=== PATIENT | female | born 1940 | race African-American/Black ===

== ENCOUNTER 2017-11-27 06:30 | Emergency (ER) | payer MEDICARE, MEDICAID ==
[~2017-11-27] VITALS: Ht 154.9 cm; Wt 68.0 kg
[~2017-11-27 06:30] MED LIST: ACET-2708 PO; ALLO100T PO; AMLO2.5T45 PO; COLC0.6T66 PO; FENO134C PO; ILEVRO LEFTEYE; NAPR-681 PO; NASOI BOTHNSTRLS; NEO/3.5O EACHEYE; OLME20TA14 PO; OMEP20CA4 PO; PRED5DRO7 LEFTEYE; REFRESH OPTIVE LEFTEYE; ROSU10TA PO; SAXA5TAB PO; SYSOS LEFTEYE; TRIA1TAB94 PO
[2017-11-27] MEDS ORDERED: IBUPROFEN 600MG TABLET PO ONE (09:30)
[2017-11-27] MEDS ORDERED: DEXAMETHASONE 4MG/ML 1ML VIAL IM ONE (09:30)
[2017-11-27 10:42] VITALS: BP 138/60
== END 2017-11-27 10:46 | disposition home or self-care (01) ==
LOC: ER 06:30
DX: M19.072 Primary osteoarthritis, left ankle and foot (principal); M21.42 Flat foot [pes planus] (acquired), left foot; I10 Essential (primary) hypertension; E11.9 Type 2 diabetes mellitus without complications; M10.9 Gout, unspecified; Z88.5 Allergy status to narcotic agent; Z88.0 Allergy status to penicillin; Z79.899 Other long term (current) drug therapy; Z98.890 Other specified postprocedural states
CPT/HCPCS: 36415; 73630; 84550; 96372; 99285; J1100

== ENCOUNTER 2021-08-19 09:11 | Emergency (ER) | payer MEDICARE, MEDICAID ==
[~2021-08-19] VITALS: Ht 154.9 cm; Wt 70.0 kg
[~2021-08-19 09:11] MED LIST changes: -COLC0.6T66 PO; +CRES10 PO; -NAPR-681 PO; -NEO/3.5O EACHEYE; +NEOM3.5O42 EACHEYE; -OLME20TA14 PO; -ROSU10TA PO; -SAXA5TAB PO; -TRIA1TAB94 PO
[2021-08-19] MEDS ORDERED: KETOROLAC 15MG/ML VIAL IM ONE (10:30)
[2021-08-19] MEDS ORDERED: CYCLOBENZAPRINE 10MG TABLET PO ONE (10:30)
[2021-08-19] MEDS ORDERED: LIDOCAINE 5% PATCH TOP SCH (10:30)
[2021-08-19] MEDS ORDERED: CYCL25PO15 MT (12:05)
[2021-08-19 12:25] VITALS: BP 129/58
== END 2021-08-19 12:36 | disposition home or self-care (01) ==
LOC: ER 09:11
DX: M54.9 Dorsalgia, unspecified (principal); R55 Syncope and collapse; E11.9 Type 2 diabetes mellitus without complications; I10 Essential (primary) hypertension; Z79.899 Other long term (current) drug therapy; Z88.0 Allergy status to penicillin
CPT/HCPCS: 96372; 99283; J1885

== ENCOUNTER 2024-02-14 10:01 | Emergency (ER) | payer MEDICARE, MEDICAID ==
[~2024-02-14] VITALS: Ht 160 cm; Wt 66.0 kg
[~2024-02-14 10:01] MED LIST changes: -AMLO2.5T45 PO; +AZIL40TA MT; +CRES10 MT; +CYAN-33 MT; +CYCL25PO15 MT; +DAPA10TA MT; -FENO134C PO; +FENO134C21 PO; +POTA-205 MT
[2024-02-14 10:12] VITALS: O2SAT 99
[2024-02-14 10:36] LABS: BASOPHILS % 0.4 % (0.0-2.0); DIFFERENTIAL COMMENT 0; HEMATOCRIT. 33.2 % (36.0-48.0); HEMOGLOBIN. 10.6 g/dL (12.0-16.0); LYMPHOCYTES % 12.6 % (20.0-50.0); MEAN CORPUSCULAR HEMOGLOBIN 23.2 pg (28.0-32.0); MEAN CORPUSCULAR HGB CONC 32.1 g/dL (31.0-37.0); MEAN CORPUSCULAR VOLUME 72.4 fL (81.0-99.0); MEAN PLATELET VOLUME 7.4 fl (7.4-10.4); MONOCYTES % 8.4 % (2.0-8.0); NEUTROPHILS % 77.6 % (40.0-76.0); PLATELET 414 x1000/uL (130-400); RED BLOOD CELL COUNT 4.59 mill/uL (4.2-5.4); RED CELL DISTRIBUTION WIDTH 18.2 % (11.6-14.6); WHITE BLOOD COUNT 10.8 x1000/uL (4.5-11.0)
[2024-02-14 10:50] LABS: CHLORIDE 105 mEq/L (98-107); POTASSIUM 2.9 mEq/L (3.5-5.1); SODIUM 136 mEq/L (136-145)
[2024-02-14 10:51] LABS: CALCIUM 9.2 mg/dL (8.7-10.4); CARBON DIOXIDE 20 mEq/L (21-32)
[2024-02-14 10:56] LABS: CREATININE 1.4 mg/dL (0.6-1.0); GLUCOSE 145 mg/dL (70-105); UREA NITROGEN BLOOD 15 mg/dL (9-23)
[2024-02-14 10:57] LABS: TROPONIN I HIGH SENSITIVITY 21 ng/L (3.0-34)
[2024-02-14 11:32] VITALS: BP 122/68; PULSE 74; RESP 16; TEMP 36.50292; O2SAT 99
== END 2024-02-14 11:33 | disposition home or self-care (01) ==
LOC: ER 10:01
DX: E87.6 Hypokalemia (principal); R05.9 Cough, unspecified; I10 Essential (primary) hypertension; E11.9 Type 2 diabetes mellitus without complications; Z88.0 Allergy status to penicillin; Z88.5 Allergy status to narcotic agent; Z79.899 Other long term (current) drug therapy; Z98.890 Other specified postprocedural states
CPT/HCPCS: 36415; 71045; 80048; 84484; 85025; 93005; 99285

== ENCOUNTER 2024-07-03 03:06 | Emergency (ER) | payer MEDICARE ==
[~2024-07-03] VITALS: Ht 154.9 cm; Wt 63.0 kg
[2024-07-03 05:17] LABS: BASOPHILS % 0.6 % (0.0-2.0); DIFFERENTIAL COMMENT 0; EOSINOPHILS % 1.3 % (0.0-5.0); HEMATOCRIT. 37.3 % (36.0-48.0); HEMOGLOBIN. 12.1 g/dL (12.0-16.0); LYMPHOCYTES % 9.2 % (20.0-50.0); MEAN CORPUSCULAR HEMOGLOBIN 23.2 pg (28.0-32.0); MEAN CORPUSCULAR HGB CONC 32.4 g/dL (31.0-37.0); MEAN CORPUSCULAR VOLUME 71.7 fL (81.0-99.0); MEAN PLATELET VOLUME 7.1 fl (7.4-10.4); MONOCYTES % 7.2 % (2.0-8.0); NEUTROPHILS % 81.7 % (40.0-76.0); PLATELET 462 x1000/uL (130-400); RED CELL DISTRIBUTION WIDTH 18.7 % (11.6-14.6); WHITE BLOOD COUNT 8.2 x1000/uL (4.5-11.0)
[2024-07-03] MEDS: IPRATROPIUM/ALBUTEROL 0.5-3(2.5)MG/3ML NEB HHN ONE (05:17)
[2024-07-03 05:18] VITALS: PULSE 70; RESP 20; O2SAT 96
[2024-07-03 05:30] LABS: CHLORIDE 103 mEq/L (98-107); POTASSIUM 3.4 mEq/L (3.5-5.1); SODIUM 142 mEq/L (136-145)
[2024-07-03 05:31] LABS: CARBON DIOXIDE 28 mEq/L (21-32)
[2024-07-03 05:32] LABS: CALCIUM 9.3 mg/dL (8.7-10.4)
[2024-07-03 05:36] LABS: CREATININE 1.4 mg/dL (0.6-1.0); GLUCOSE 155 mg/dL (70-105)
[2024-07-03 05:37] LABS: UREA NITROGEN BLOOD 16 mg/dL (9-23)
[2024-07-03 05:38] LABS: TROPONIN I HIGH SENSITIVITY 24 ng/L (3.0-34)
[2024-07-03] MEDS: METHYLPREDNISOLONE SOD SUCC 125MG/2ML (ACT-O-VIAL) IV NR (07:59)
[2024-07-03] MEDS: METHYLPREDNISOLONE 40MG/ML INJ IV ONE (07:59)
[2024-07-03 08:48] LABS: TROPONIN I HIGH SENSITIVITY 25 ng/L (3.0-34)
[2024-07-03] MEDS: POTASSIUM CHLORIDE 20MEQ/PACKET PO ONE ×2 (08:53)
[2024-07-03 09:58] VITALS: BP 158/62; PULSE 78; RESP 18; TEMP 36.8; O2SAT 98
== END 2024-07-03 10:00 | disposition home or self-care (01) ==
LOC: ER 04:32
DX: R60.0 Localized edema (principal); E11.9 Type 2 diabetes mellitus without complications; I10 Essential (primary) hypertension; M19.90 Unspecified osteoarthritis, unspecified site; Z79.51 Long term (current) use of inhaled steroids; Z79.84 Long term (current) use of oral hypoglycemic drugs; Z79.899 Other long term (current) drug therapy; Z88.0 Allergy status to penicillin; Z88.5 Allergy status to narcotic agent
CPT/HCPCS: 80048; 83880; 85025; 84484; 36415; 71045; 94640; 94664; 93005; 94070; 98960; 99285; J2920

== ENCOUNTER 2025-02-19 13:03 | Emergency (ER) | payer MEDICARE, MEDICAID ==
[~2025-02-19] VITALS: Ht 154.9 cm; Wt 69.0 kg
[~2025-02-19 13:03] MED LIST changes: +ASPI-1497 PO; +ATOR40TA70 MT; -CRES10 MT; -CRES10 PO; +DILT180T11 PO; +FLUT1AER INH; +FLUT9.9S BOTHNSTRLS; +HYDR50TA40 PO; -ILEVRO LEFTEYE; +KETO-104 EACHEYE; +LINA5TAB PO; +LOSA50TA41 MT; -NASOI BOTHNSTRLS; -NEOM3.5O42 EACHEYE; -OMEP20CA4 PO; +PRED5DRO22 LEFTEYE; -PRED5DRO7 LEFTEYE; +PROM6.2527 PO; -REFRESH OPTIVE LEFTEYE; -SYSOS LEFTEYE
[2025-02-19 13:10] VITALS: O2SAT 100
[2025-02-19 13:12] VITALS: BP 179/48; PULSE 66; RESP 18; TEMP 36.9; O2SAT 99
[2025-02-19 14:00] LABS: BASOPHILS % 0.7 % (0.0-2.0); EOSINOPHILS % 1.7 % (0.0-5.0); HEMATOCRIT. 34.4 % (36.0-48.0); HEMOGLOBIN. 11.0 g/dL (12.0-16.0); LYMPHOCYTES % 14.8 % (20.0-50.0); MEAN PLATELET VOLUME 7.2 fl (7.4-10.4); MONOCYTES % 7.5 % (2.0-8.0); NEUTROPHILS % 75.3 % (40.0-76.0); PLATELET 515 x1000/uL (130-400); RED BLOOD CELL COUNT 4.56 mill/uL (4.2-5.4); RED CELL DISTRIBUTION WIDTH 17.1 % (11.6-14.6)
[2025-02-19 14:29] LABS: CREATININE 1.3 mg/dL (0.6-1.0); UREA NITROGEN BLOOD 12 mg/dL (9-23)
[2025-02-19 14:30] LABS: TROPONIN I HIGH SENSITIVITY 18 ng/L (3.0-34)
[2025-02-19 14:31] LABS: ASPARTATE AMINOTRANSFERASE 14 IU/L (<34); BILIRUBIN DIRECT 0.1 mg/dL (<=3.0); BILIRUBIN TOTAL 0.3 mg/dL (0.1-1.0); PROTEIN TOTAL 7.2 g/dL (6.0-8.3)
[2025-02-19] MEDS: POTASSIUM CHLORIDE 20MEQ/PACKET PO SCH (15:08)
[2025-02-19] MEDS: LOSARTAN 25 MG TABLET PO ONE (15:08)
== END 2025-02-19 15:23 | disposition home or self-care (01) ==
LOC: ER 13:03
DX: I10 Essential (primary) hypertension (principal); J45.909 Unspecified asthma, uncomplicated; E11.9 Type 2 diabetes mellitus without complications; E78.00 Pure hypercholesterolemia, unspecified; Z79.899 Other long term (current) drug therapy; Z88.0 Allergy status to penicillin; Z88.5 Allergy status to narcotic agent
CPT/HCPCS: 36415; 80048; 80076; 84484; 85025; 93005; 99284